=== PATIENT | female | born 2000 | race Two or more races ===

== ENCOUNTER 2023-06-02 20:01 | Inpatient (IN) | payer OTHER ==
[~2023-06-02] VITALS: Ht 165.1 cm; Wt 58.1 kg
[2023-06-02] MEDS ORDERED: HYDR-501 PO (20:20)
[2023-06-02 20:50] LABS: BASOPHILS % (AUTO) 0.7 % (0.0-2.0); EOSINOPHILS # (AUTO) 0.1 K/uL (0.0-0.7); EOSINOPHILS % (AUTO) 1.1 % (0.0-7.0); HEMATOCRIT 40.6 % (31.2-41.9); HEMOGLOBIN 13.5 g/dL (10.9-14.3); LYMPHOCYTES # (AUTO) 1.5 K/uL (0.8-4.8); LYMPHOCYTES % (AUTO) 26.6 % (20.5-51.5); MEAN CORPUSCULAR HEMOGLOBIN 29.3 uug (24.7-32.8); MEAN CORPUSCULAR HGB CONC 33 g/dL (32.3-35.6); MEAN CORPUSCULAR VOLUME 87.8 fL (75.5-95.3); MONOCYTES # (AUTO) 0.5 K/uL (0.1-1.30); NEUTROPHILS # (AUTO) 3.7 K/uL (1.8-8.9); NEUTROPHILS % (AUTO) 63.6 % (38.5-71.5); PLATELET COUNT (AUTO) 256 K/uL (179-408); RED BLOOD CELL COUNT(AUTO) 4.62 MIL/uL (3.63-4.92); RED CELL DISTRIBUTION WIDTH 13.7 % (12.3-17.7); WHITE BLOOD COUNT (AUTO) 5.8 K/uL (3.8-11.8)
[2023-06-02 21:04] LABS: *BILIRUBIN,URIN NEGATIVE (NEGATIVE); *BLOOD, URINE NEGATIVE (NEGATIVE); *CLARITY,URINE CLEAR (CLEAR); *COLOR,URINE YELLOW (YELLOW); *KETONES,URINE TRACE (NEGATIVE); *PROTEIN,URINE 1+ (NEGATIVE); *UROBILINOGEN,URINE 0.2 E.U./dl (NORMAL); LEUKOCYTE ESTERASE ,URINE NEGATIVE (NEGATIVE); NITRITE, URINE NEGATIVE (NEGATIVE); UGLUCOSE NEGATIVE (NEGATIVE)
[2023-06-02 21:04] LABS: CALCIUM 9.2 mg/dL (8.5-10.1); CREATININE 0.8 mg/dL (0.6-1.3); POTASSIUM 3.5 mmol/L (3.5-5.1)
[2023-06-02 21:05] LABS: DIFFERENTIAL COMMENT 1
[2023-06-02 21:07] LABS: *URINE HCG, QUAL NEGATIVE (NEGATIVE)
[2023-06-02 21:13] LABS: *AMPHETAMINE, URINE NEGATIVE (NEGATIVE); *BARBITURATE, URINE NEGATIVE (NEGATIVE); *BENZODIAZEPINE, URINE NEGATIVE (NEGATIVE); *CANNABINOID, URINE NEGATIVE (NEGATIVE); *COCCAINE, URINE NEGATIVE (NEGATIVE); *OPIATE, URINE NEGATIVE (NEGATIVE); *PHENCYCLIDINE SCREEN,URINE NEGATIVE (NEGATIVE); FENTANYL, URINE NEGATIVE (NEGATIVE)
[2023-06-02 21:19] LABS: LACTIC ACID 3.2 mmol/L (0.4-2.0)
[2023-06-02 21:22] LABS: ALBUMIN 4.3 g/dL (3.4-5.0); BILIRUBIN,TOTAL 0.4 mg/dL (0.2-1.0); TOTAL PROTEIN, SERUM 8.3 g/dL (6.4-8.2)
[2023-06-02 21:45] LABS: BACTERIA,URINE FEW /HPF (NONE SEEN); WBC,URINE 0-3 /HPF (0-3)
[2023-06-02 21:46] LABS: SQUAMOUS EPITHELIAL CELL,UR MODERATE /HPF (NONE SEEN)
[2023-06-02] MEDS ORDERED: BUPR-53 PO (21:49)
[2023-06-02] MEDS ORDERED: BUPR-319 PO (21:49)
[2023-06-02] MEDS ORDERED: levETIRAcetam 500 MG/5 ML VIAL IV ONE (22:00)
[2023-06-02] MEDS: levETIRAcetam IV 1,000 MG in IV DEXTROSE 5% 100 ML IV ONE (22:12)
[2023-06-02] MEDS: IV NS 1000 ML 1,000 ML IV ONE (22:12)
[2023-06-02] MEDS ORDERED: REMEDY ESSENTIAL ZINC PASTE 113 GM TP PRN (23:15)
[2023-06-02] MEDS ORDERED: ONDANSETRON 4 MG/2 ML VIAL IV PRN (23:15)
[2023-06-02] MEDS ORDERED: LORAZEPAM 2 MG/1 ML VIAL IV PRN (23:15)
[2023-06-02] MEDS ORDERED: ACETAMINOPHEN 325 MG TABLET PO PRN (23:15)
[2023-06-02] MEDS ORDERED: MAGNESIUM HYDROXIDE 30 ML LIQUID UDC PO PRN (23:15)
[2023-06-03] MEDS: IV D5 1/2 NS 1000 ML 1,000 ML IV PRN (00:32)
[2023-06-03 01:10] VITALS: BP 114/70; TEMP 98.2; O2SAT 98
[2023-06-03 04:00] VITALS: BP 105/60; TEMP 97.9; O2SAT 98
[2023-06-03 07:10] LABS: CALCIUM 8.1 mg/dL (8.5-10.1); CREATININE 0.6 mg/dL (0.6-1.3); MAGNESIUM 1.9 mg/dL (1.8-2.4); PHOSPHOROUS 4.8 mg/dL (2.5-4.9); POTASSIUM 3.7 mmol/L (3.5-5.1)
[2023-06-03 07:43] LABS: BASOPHILS % (AUTO) 0.3 % (0.0-2.0); EOSINOPHILS # (AUTO) 0.1 K/uL (0.0-0.7); EOSINOPHILS % (AUTO) 0.7 % (0.0-7.0); HEMATOCRIT 33.9 % (31.2-41.9); HEMOGLOBIN 11.4 g/dL (10.9-14.3); LYMPHOCYTES # (AUTO) 1.4 K/uL (0.8-4.8); LYMPHOCYTES % (AUTO) 15.7 % (20.5-51.5); MEAN CORPUSCULAR HEMOGLOBIN 29.5 uug (24.7-32.8); MEAN CORPUSCULAR HGB CONC 34 g/dL (32.3-35.6); MEAN CORPUSCULAR VOLUME 87.9 fL (75.5-95.3); MONOCYTES # (AUTO) 0.9 K/uL (0.1-1.30); MONOCYTES % (AUTO) 9.9 % (0.0-11.0); NEUTROPHILS # (AUTO) 6.4 K/uL (1.8-8.9); NEUTROPHILS % (AUTO) 73.4 % (38.5-71.5); PLATELET COUNT (AUTO) 202 K/uL (179-408); RED BLOOD CELL COUNT(AUTO) 3.86 MIL/uL (3.63-4.92); RED CELL DISTRIBUTION WIDTH 13.9 % (12.3-17.7); WHITE BLOOD COUNT (AUTO) 8.7 K/uL (3.8-11.8)
[2023-06-03] MEDS ORDERED: hydrOXYzine HCL 10 MG TABLET PO PRN (08:45)
[2023-06-03] MEDS ORDERED: levETIRAcetam IV 500 MG in IV DEXTROSE 5% 100 ML IV SCH (09:00)
[2023-06-03] MEDS: buPROPion XL 150 MG TAB.SR.24H PO SCH (09:06)
[2023-06-03 11:34] VITALS: BP 94/53; TEMP 98; O2SAT 97
[2023-06-03 15:53] VITALS: BP 105/67; TEMP 99.3; O2SAT 97
[2023-06-03 20:00] VITALS: BP 113/72; TEMP 97.9; O2SAT 100
[2023-06-03] MEDS: levETIRAcetam 500 MG TABLET PO SCH (20:42)
[2023-06-04] VITALS: BP 104/66; TEMP 97.3; O2SAT 96
[2023-06-04 04:00] VITALS: BP 99/52; TEMP 97.4; O2SAT 97
[2023-06-04 07:53] VITALS: BP 102/50; TEMP 97.5; O2SAT 99
[2023-06-04] MEDS ORDERED: LEVE500T9 PO (08:51)
[2023-06-04 12:05] VITALS: BP 109/56; TEMP 98.2; O2SAT 97
== END 2023-06-04 12:15 | disposition home or self-care (01) | DRG 53 ==
LOC: ER 20:04 → TELE3 22:30
PROVIDERS: ADMIT Student in an Organized Health Care Education/Training Program; ATTEND Nurse Practitioner Acute Care
PROC: 05HC33Z Insertion of Infusion Device into Left Basilic Vein, Percutaneous Approach (ICD-10-PCS; principal; 2023-06-03)
DX: R56.9 Unspecified convulsions (principal); F32.A Depression, unspecified; F41.9 Anxiety disorder, unspecified; T43.295A Adverse effect of other antidepressants, initial encounter; Y92.039 Unspecified place in apartment as the place of occurrence of the external cause; Z79.899 Other long term (current) drug therapy
CPT/HCPCS: 36415; 70450; 83605; 83735; 84100; 84443; 84484; 84703; 85025; 93005; 95819; G0378; J1953; J7040; J7042